=== PATIENT | female | born 1960 | race Caucasian/White ===

== ENCOUNTER 2016-08-19 19:41 | Inpatient (IN) | payer MEDICARE, MEDICAID ==
[~2016-08-19] VITALS: Ht 170.2 cm; Wt 78.9 kg
[~2016-08-19 19:41] MED LIST: AZEL30SP NS; DICL30AD3 PO; DICY20TA11 PO; ESOM40CA PO; GLYC1SUP RC; LACT10SO6 PO; LEVO125T PO; LIDO30AD10 TP; ONDA4TAB5 PO; OXCA150T5 PO; SULI200T4 PO; SUMA100T PO; TOPI15CA PO
[2016-08-19] MEDS ORDERED: MAGNESIUM HYDROXIDE 30 ML UDC PO PRN (20:30)
[2016-08-19] MEDS ORDERED: ACETAMINOPHEN 325 MG TABLET PO PRN (20:30)
[2016-08-19] MEDS ORDERED: MAG HYDROX/AL HYDROX/SIMETH 30 ML UDC PO PRN (20:30)
--- NOTE | 2016-08-19 20:30 | NUR ---
GPS PROFILE STITCHING MACHINE OPERATOR NOTES ADMITTED THIS 55 YEAR OLD FEMALE ON VOLUNTARY STATUS. PATIENT WAS EVALUATED IN THE EMERGENCY ROOM AFTER A FALL. PT DENIED HALLUCINATIONS AND DENIES THE USE OF DRUGS OR ALCOHOL. PT REPORTS THAT HER MAIN CONCERN WAS THAT SHE WAS SUFFERING FROM A SYNDROME THAT GIVES HER A LOT OF PAIN. PT HAS HISTORY OF DEPRESSION IN THE PAST. PT REPORTS THAT SHE HAS NEVER TRIED TO HARM HERSELF. UPON FACE TO FACE, PATIENT IS CALM AND QUIET, COOPERATIVE, SIGNED ALL THE CONSENT FORMS. VITAL SIGNS CHECKED AND RECORDED. RESPIRATION EVEN AND UNLABORED. NO SOB. NO ACUTE DISTRESS NOTED. SKIN/BODY ASSESSMENT DONE. NOTED RIGHT ARM BRUISE. RIGHT UPPER LEG BRUISE. PICTURES TAKEN. MRSA SWAB DONE. PATIENT ADMITTED UNDER DR. TORRES FOR PSYCHE AND DR. TRUJILLO FOR MEDICAL. BED IN LOW AND LOCKED POSITION, SIDERAILS UPX2, CALL OVIEDO WITHIN REACH, WILL CONTINUE TO MONITOR FOR SAFETY AND BEHAVIOR [id number].
[2016-08-20 02:06] VITALS: BP 105/76
[2016-08-20 07:57] VITALS: BP 140/80
[2016-08-20 08:00] VITALS: BP 110/65
[2016-08-20] MEDS ORDERED: TOPI-67 PO (08:35)
[2016-08-20] MEDS ORDERED: HYDR2TAB35 PO (08:35)
[2016-08-20] MEDS ORDERED: PARO30TA3 PO (08:35)
[2016-08-20] MEDS ORDERED: CLON1TAB PO (08:35)
[2016-08-20] MEDS ORDERED: LACT1CAP74 PO (08:35)
[2016-08-20] MEDS ORDERED: BACL10TA PO (08:35)
[2016-08-20] MEDS ORDERED: DULO60CA45 PO (08:35)
[2016-08-20] MEDS ORDERED: CLON0.5T PO (08:35)
[2016-08-20] MEDS ORDERED: OLAN20TA3 PO (08:35)
[2016-08-20] MEDS ORDERED: PANT40TA4 PO (08:35)
[2016-08-20] MEDS ORDERED: ACET-868 PO (08:35)
--- NOTE | 2016-08-20 10:26 | NUR ---
Initial DC Plan: Patient resides at [id number] [place] [address], [place] [address]; [phone]. Her caregiver Vidhya Dias ([phone]) and caregiver Windy ([phone]) are her contact persons. YOCASTA attempted to speak with caregiver Vidhya but she did not answer and SW unable to leave a message. Per the patient, she would like to see if she qualifies for SNF placement. YOCASTA will work with patient and MD for appropriate placement. SW will provide Narcotics Anonymous resources to the patient with meeting location date and time. alley worker will provide smoking cessation resources prior to discharge. alley worker will help form a safe and proper discharge.
[2016-08-20 10:30] LABS: BASOPHILS % (AUTO) 0.2 % (0.0-2.0); EOSINOPHILS # (AUTO) 0.2 /CMM (0.0-0.7); HEMATOCRIT 36 % (33-45); HEMOGLOBIN 11.6 g/dL (11.5-14.8); LYMPHOCYTES # (AUTO) 2.2 /CMM (0.8-4.8); LYMPHOCYTES % (AUTO) 25.8 % (20.0-44.0); MEAN CORPUSCULAR HEMOGLOBIN 28 PG (26.0-33.0); MEAN CORPUSCULAR HGB CONC 32 g/dl (31.0-36.0); MEAN CORPUSCULAR VOLUME 88 fL (82-100); MONOCYTES # (AUTO) 0.5 /CMM (0.1-1.30); MONOCYTES % (AUTO) 6.5 % (2.0-12.0); NEUTROPHILS # (AUTO) 5.6 /CMM (1.8-8.9); NEUTROPHILS % (AUTO) 65.5 % (43.0-81.0); PLATELET COUNT (AUTO) 442 /CMM (150-450); RDW COEFFICIENT OF VARIATION 17.3 (11.5-15.0); RED BLOOD CELL COUNT(AUTO) 4.09 MIL/uL (4.0-5.2); WHITE BLOOD COUNT (AUTO) 8.5 K/uL (4.3-11.0)
[2016-08-20 10:56] LABS: ALBUMIN 3.1 g/dL (3.4-5.0); BILIRUBIN,TOTAL 0.2 mg/dL (0.2-1.0); CALCIUM, SERUM 9.1 mg/dL (8.5-10.1); CREATININE 0.9 mg/dL (0.6-1.3); POTASSIUM 3.6 mmol/L (3.5-5.1); TOTAL PROTEIN, SERUM 6.7 g/dL (6.4-8.2)
--- NOTE | 2016-08-20 14:31 | NUR ---
RN-CO: Dr Serrato notified to reconcile home medication. Dr Serrato came and stated that Jose C Scott NP is the attending hospitalist.
--- NOTE | 2016-08-20 14:57 | NUR ---
RN-CO: Jose C Scott COMPUTER SUPPORT SPECIALIST INSTRUCTOR notified to reconcile home medications.
[2016-08-20 16:00] VITALS: BP 155/83
--- NOTE | 2016-08-20 16:57 | NUR ---
RN-CO: Reminded Jose C Scott NP to reconcile home medications.
[2016-08-20] MEDS ORDERED: SUMATRIPTAN SUCCINATE 100 MG TABLET PO PRN (19:30)
[2016-08-20 20:00] VITALS: BP 115/77
[2016-08-20] MEDS ORDERED: ONDANSETRON 4 MG TAB.RAPDIS PO PRN (20:00)
[2016-08-20] MEDS: HYDROMORPHONE HCL 2 MG TABLET PO PRN (20:00)
[2016-08-20] MEDS: OLANZAPINE 10 MG TABLET PO SCH (20:19)
[2016-08-20] MEDS: TOPIRAMATE 25 MG TABLET PO SCH (20:20)
[2016-08-20] MEDS: BACLOFEN (10 MG) 10 MG TABLET PO SCH (20:21)
[2016-08-20] MEDS: DULOXETINE HCL 30 MG CAPSULE.DR PO SCH (21:19)
[2016-08-20] MEDS ORDERED: OXCARBAZEPINE 150 MG TABLET PO SCH (22:00)
[2016-08-20] MEDS: TEMAZEPAM 7.5 MG CAPSULE PO PRN (22:19)
[2016-08-21] MEDS: LORAZEPAM 0.5 MG TABLET PO PRN (05:02)
[2016-08-21 08:00] VITALS: BP 140/88
[2016-08-21] MEDS: PANTOPRAZOLE 40 MG TABLET.DR PO SCH (08:48)
[2016-08-21] MEDS: ACIDOPHILUS/BULGARICUS 1 EACH TAB.CHEW PO SCH ×2 (08:48→17:50)
[2016-08-21] MEDS: LEVOTHYROXINE SODIUM 75 MCG TABLET PO SCH (08:48)
[2016-08-21] MEDS: BACLOFEN (10 MG) 10 MG TABLET PO SCH ×3 (08:48→17:50)
[2016-08-21] MEDS: OLANZAPINE 10 MG TABLET PO SCH ×2 (08:48→20:19)
[2016-08-21] MEDS: PAROXETINE HCL 20 MG TABLET PO SCH (08:48)
[2016-08-21] MEDS: TOPIRAMATE 25 MG TABLET PO SCH ×2 (08:48→17:50)
[2016-08-21] MEDS: SULINDAC 200 MG TABLET PO SCH ×2 (08:49→17:53)
[2016-08-21] MEDS: HYDROMORPHONE HCL 2 MG TABLET PO PRN ×2 (10:21→19:36)
--- NOTE | 2016-08-21 13:00 | NUR ---
GPS/RN PT ASKED TO COLLECT URINE SAMPLE.
[2016-08-21] MEDS: NICOTINE PATCH (14MG) 14 MG PATCH.TD24 TD SCH (15:19)
[2016-08-21 16:17] VITALS: BP 123/69
--- NOTE | 2016-08-21 18:55 | NUR ---
GPAS/RN ENDORSED TO MICHAEL ROY/ MANUAL MACHINIST TO COLLECT URINE SAMPLE PT KEEPS FORGETTING TO COLLECT.
[2016-08-21 20:00] VITALS: BP 99/72
[2016-08-21] MEDS: DULOXETINE HCL 30 MG CAPSULE.DR PO SCH (21:03)
[2016-08-21] MEDS: TEMAZEPAM 7.5 MG CAPSULE PO PRN (22:12)
[2016-08-22 06:56] LABS: APPEARANCE,URINE CLEAR (CLEAR); BILIRUBIN,URINE NEGATIVE (NEGATIVE); BLOOD, URINE 2+ Ery/uL (NEGATIVE); COLOR,URINE YELLOW (YELLOW); KETONES,URINE NEGATIVE (NEGATIVE); LEUKOCYTE ESTERASE ,URINE NEGATIVE (NEGATIVE); NITRITE, URINE NEGATIVE (NEGATIVE); PH,URINE 5.5 (5.0-8.0); PROTEIN,URINE NEGATIVE (NEGATIVE); UGLUCOSE NEGATIVE (NEGATIVE); UROBILINOGEN,URINE 0.2 EU/dL (0.2)
[2016-08-22 08:00] VITALS: BP 108/61
[2016-08-22 08:06] LABS: ADD URINE CULTURE NO; BACTERIA,URINE Rare /HPF (None Seen); SQUAMOUS EPITHELIAL CELL,UR Rare /HPF (None Seen); WBC,URINE 0-2 /HPF (0-3)
[2016-08-22] MEDS: PANTOPRAZOLE 40 MG TABLET.DR PO SCH (08:22)
[2016-08-22] MEDS: OLANZAPINE 10 MG TABLET PO SCH ×2 (08:22→21:26)
[2016-08-22] MEDS: TOPIRAMATE 25 MG TABLET PO SCH ×2 (08:22→16:57)
[2016-08-22] MEDS: BACLOFEN (10 MG) 10 MG TABLET PO SCH ×3 (08:22→16:57)
[2016-08-22] MEDS: NICOTINE PATCH (14MG) 14 MG PATCH.TD24 TD SCH (08:23)
[2016-08-22] MEDS: PAROXETINE HCL 20 MG TABLET PO SCH (08:23)
[2016-08-22] MEDS: LEVOTHYROXINE SODIUM 75 MCG TABLET PO SCH (08:23)
[2016-08-22] MEDS: ACIDOPHILUS/BULGARICUS 1 EACH TAB.CHEW PO SCH ×2 (08:23→16:57)
[2016-08-22] MEDS: SULINDAC 200 MG TABLET PO SCH ×2 (08:24→16:58)
[2016-08-22] MEDS: HYDROMORPHONE HCL 2 MG TABLET PO PRN ×2 (08:38→16:58)
[2016-08-22] MEDS ORDERED: NICOTINE PATCH (14MG) 14 MG PATCH.TD24 TD SCH (09:00)
--- NOTE | 2016-08-22 12:23 | NUR ---
GPS/RN DR. MCKNIGHT OK'ED TO START TRILEPTAL 300MG PO HS FROM THE HOME MEDS LIST. CONSENT SIGNED AND FAXED TO THE PHARMACY. PHARMACY MADE AWARE THAT MEDICATION IS FOR THE PSYCH REASON.
[2016-08-22 16:00] VITALS: BP 106/72
[2016-08-22 20:09] VITALS: BP 99/58
[2016-08-22] MEDS: OXCARBAZEPINE 150 MG TABLET PO SCH (21:26)
[2016-08-22] MEDS: DULOXETINE HCL 30 MG CAPSULE.DR PO SCH (21:27)
[2016-08-22] MEDS: TEMAZEPAM 7.5 MG CAPSULE PO PRN (22:22)
[2016-08-23 08:00] VITALS: BP 94/68
[2016-08-23] MEDS: LEVOTHYROXINE SODIUM 75 MCG TABLET PO SCH (08:28)
[2016-08-23] MEDS: PANTOPRAZOLE 40 MG TABLET.DR PO SCH (08:28)
[2016-08-23] MEDS: BACLOFEN (10 MG) 10 MG TABLET PO SCH ×3 (08:29→16:20)
[2016-08-23] MEDS: ACIDOPHILUS/BULGARICUS 1 EACH TAB.CHEW PO SCH ×2 (08:29→16:20)
[2016-08-23] MEDS: OLANZAPINE 10 MG TABLET PO SCH ×2 (08:31→21:18)
[2016-08-23] MEDS: TOPIRAMATE 25 MG TABLET PO SCH ×2 (08:31→16:20)
[2016-08-23] MEDS: NICOTINE PATCH (14MG) 14 MG PATCH.TD24 TD SCH (08:31)
[2016-08-23] MEDS: PAROXETINE HCL 20 MG TABLET PO SCH (08:31)
[2016-08-23] MEDS: SULINDAC 200 MG TABLET PO SCH ×2 (08:32→16:21)
[2016-08-23] MEDS: LORAZEPAM 0.5 MG TABLET PO PRN ×2 (09:50→18:54)
--- NOTE | 2016-08-23 09:50 | NUR ---
[id number]: GAVE ATIVAN 0.5 MG PO DUE TO SEVERER ANXIETY UPON PT REQUEST AND WILL CONTINUE TO MONITOR FOR EFFECTIVENESS OF MEDICATION
--- NOTE | 2016-08-23 12:08 | NUR ---
YOCASTA faxed a referral to [facility] ([facility] [id number], [place] [address] will follow up Addendum: 08/24/16 at 1328 by MINO RUST Pt. has been accepted to [facility] per July from the facility
[2016-08-23] MEDS: HYDROMORPHONE HCL 2 MG TABLET PO PRN (12:26)
--- NOTE | 2016-08-23 12:26 | NUR ---
[id number]: GAVE DILAUDID 2 MG PO DUE TO HEADACHE 11/18 UPO PT REQUEST AND WILL CONTINUE TO MONITOR FOR EFFECTIVENESS OF MEDICATION
[2016-08-23 16:00] VITALS: BP 97/66
--- NOTE | 2016-08-23 18:54 | NUR ---
GPS RN NOTE, PATIENT HAS A COMPLAINT OF FEELING ANXIOUS AND WOULD LIKE MEDICATION AT THIS TIME. PATIENT VITAL SIGNS ARE STABLE. GAVE ATIVAN MG PO Q6HR PRN ORDERED. WILL REASSESS FOR AND ANXIETY AND I WILL CONTINUE TO MONITOR THIS PATIENT.
--- NOTE | 2016-08-23 19:30 | NUR ---
GPS RN NOTE, RECEIVED PATIENT AWAKE AND IN BED, NO S/S OR COMPLAINTS OF PAIN AT THIS TIME. PATIENT IS DISPLAYING NO S/S OF APPARENT DISTRESS AT THIS TIME. PATIENT BREATHING IS UNLABORED WITH EQUAL RISE AND FALL OF THE CHEST. PATIENT IS ALERT AND ORIENTED X 3 ON ROOM AIR WITH A SPO2 96%. PATIENT COMPLIANT WITH MEDICATIONS, DEPRESSED, COOPERATIVE, ATTENTION SEEKING , AND NEEDS REORIENTATION. PATIENT DENIES SUICIDE AND HOMICIDAL IDEATIONS AT THIS TIME. PATIENT ASSISTED WITH TURNING AND REPOSITIONING Q2HR AND PRN FOR COMFORT AND CIRCULATION. PATIENT HAS NO NEEDS AT THIS TIME. PATIENT EDUCATED ON THE USE OF THE CALL OVIEDO. PATIENT BED SIDE RAILS UP X2 FOR SAFETY, BED IS LOCKED AND LOW WILL CONTINUE TO MONITOR AND MAINTAIN SAFETY.
[2016-08-23 19:47] VITALS: BP 104/64
[2016-08-23] MEDS: OXCARBAZEPINE 150 MG TABLET PO SCH (21:18)
[2016-08-23] MEDS: DULOXETINE HCL 30 MG CAPSULE.DR PO SCH (21:18)
[2016-08-24 08:11] VITALS: BP 104/70
[2016-08-24] MEDS: PAROXETINE HCL 20 MG TABLET PO SCH (08:21)
[2016-08-24] MEDS: PANTOPRAZOLE 40 MG TABLET.DR PO SCH (08:22)
[2016-08-24] MEDS: BACLOFEN (10 MG) 10 MG TABLET PO SCH ×3 (08:22→16:10)
[2016-08-24] MEDS: LEVOTHYROXINE SODIUM 75 MCG TABLET PO SCH (08:22)
[2016-08-24] MEDS: ACIDOPHILUS/BULGARICUS 1 EACH TAB.CHEW PO SCH ×2 (08:23→16:10)
[2016-08-24] MEDS: OLANZAPINE 10 MG TABLET PO SCH ×2 (08:23→21:43)
[2016-08-24] MEDS: TOPIRAMATE 25 MG TABLET PO SCH ×2 (08:23→16:10)
[2016-08-24] MEDS: SULINDAC 200 MG TABLET PO SCH ×2 (08:26→16:10)
[2016-08-24] MEDS: NICOTINE PATCH (14MG) 14 MG PATCH.TD24 TD SCH (08:30)
[2016-08-24] MEDS: HYDROMORPHONE HCL 2 MG TABLET PO PRN ×2 (09:52→20:49)
--- NOTE | 2016-08-24 09:52 | NUR ---
[id number]: GAVE DILAUDID 2 MG PO DUE TO GENERALIZED PAIN 11/18 UPON PT REQUEST AND WILL CONTINUE TO MONITOR FOR EFFECTIVENESS OF MEDICATION
--- NOTE | 2016-08-24 09:53 | NUR ---
[id number]: GAVE MAALOX 30 ML PO DUE TO INDIGESTION UPON PT REQUEST AND WILL CONTINUE TO MONITOR FRO EFFECTIVENESS OF MEDICATION
[2016-08-24] MEDS: LORAZEPAM 0.5 MG TABLET PO PRN (12:25)
--- NOTE | 2016-08-24 12:25 | NUR ---
[id number]: GAVE ATIVAN 0.5 MG PO DUE TO SEVERE ANXIETY UPON PT REQUEST AND WILL CONTINUE TO MONITOR FOR EFFECTIVENESS OF MEDICATION
[2016-08-24 16:00] VITALS: BP 134/66
[2016-08-24] MEDS: LIDOCAINE 5% (PATCH) 1 EA PATCH TP SCH (17:46)
--- NOTE | 2016-08-24 20:09 | NUR ---
GPS RN NOTE: PATIENT WAS C/O LEFT SIDED CHEST PAIN DESCRIBE OF THROBBING AND SHARP PAIN, V/S BP 108/68, P82, R18, T98.4, PATIENT HAS NO SOB, NO ACUTE DISTRESS, BREATHING EVEN AND UNLABORED, PATIENT LOOKS ANXIOUS. NOTIFIED DR. LIM WITH ORDERS GIVEN NOTED AND CARRIED OUT. WILL CONTINUE TO MONITOR [id number] FOR SAFETY
[2016-08-24 20:21] VITALS: BP 104/65
--- NOTE | 2016-08-24 21:37 | NUR ---
GPS RN NOTE: RECEIVED RESULT OF EKG SINUS TACHYCARDIA; RATE = 120, TROPONIN LEVEL = 0.017, PATIENT HAS NO SOB, NO ACUTE DISTRESS, BREATHING EVEN AND UNLABORED, DENIES CHEST PAIN, P= 82 (MANUALLY). RESULT REPORTED TO DR. LIM WITH NO ORDER GIVEN NOTED AND CARRIED OUT.
[2016-08-24] MEDS: OXCARBAZEPINE 150 MG TABLET PO SCH (21:43)
[2016-08-24] MEDS: DULOXETINE HCL 30 MG CAPSULE.DR PO SCH (21:43)
[2016-08-24] MEDS: TEMAZEPAM 7.5 MG CAPSULE PO PRN (23:27)
[2016-08-25] MEDS: LORAZEPAM 0.5 MG TABLET PO PRN ×2 (01:12→18:38)
[2016-08-25 08:00] VITALS: BP 101/69
[2016-08-25] MEDS: PANTOPRAZOLE 40 MG TABLET.DR PO SCH (08:38)
[2016-08-25] MEDS: PAROXETINE HCL 20 MG TABLET PO SCH (08:38)
[2016-08-25] MEDS: SULINDAC 200 MG TABLET PO SCH ×2 (08:39→16:45)
[2016-08-25] MEDS: ACIDOPHILUS/BULGARICUS 1 EACH TAB.CHEW PO SCH ×2 (08:39→16:45)
[2016-08-25] MEDS: LEVOTHYROXINE SODIUM 75 MCG TABLET PO SCH (08:39)
[2016-08-25] MEDS: TOPIRAMATE 25 MG TABLET PO SCH ×2 (08:39→16:45)
[2016-08-25] MEDS: BACLOFEN (10 MG) 10 MG TABLET PO SCH ×3 (08:39→16:45)
[2016-08-25] MEDS: OLANZAPINE 10 MG TABLET PO SCH ×2 (08:40→21:15)
[2016-08-25] MEDS: NICOTINE PATCH (14MG) 14 MG PATCH.TD24 TD SCH (08:41)
[2016-08-25 16:00] VITALS: BP 100/57
[2016-08-25] MEDS: LIDOCAINE 5% (PATCH) 1 EA PATCH TP SCH (16:49)
--- NOTE | 2016-08-25 18:38 | NUR ---
[id number]: GAVE ATIVAN 0.5 MG PO DUE TO ANXIETY UPON PT REQUEST AND WILL CONTINUE TO MONITOR FOR EFFECTIVENESS OF MEDICATION
--- NOTE | 2016-08-25 19:30 | NUR ---
GPS RN NOTE, RECEIVED PATIENT AWAKE AND IN BED, NO S/S OR COMPLAINTS OF PAIN AT THIS TIME. PATIENT IS DISPLAYING NO S/S OF APPARENT DISTRESS AT THIS TIME. PATIENT BREATHING IS UNLABORED WITH EQUAL RISE AND FALL OF THE CHEST. PATIENT IS ALERT AND ORIENTED X 2 ON ROOM AIR WITH A SPO2 98%. PATIENT COMPLIANT WITH MEDICATIONS, DEPRESSED, COOPERATIVE, CALM, CONFUSED AT TIMES, AND NEEDS REORIENTATION. PATIENT DENIES SUICIDE AND HOMICIDAL IDEATIONS AT THIS TIME. PATIENT ASSISTED WITH TURNING AND REPOSITIONING Q2HR AND PRN FOR COMFORT AND CIRCULATION. PATIENT HAS NO NEEDS AT THIS TIME. PATIENT EDUCATED ON THE USE OF THE CALL OVIEDO. PATIENT BED SIDE RAILS UP X2 FOR SAFETY, BED IS LOCKED AND LOW WILL CONTINUE TO MONITOR AND MAINTAIN SAFETY.
[2016-08-25 19:52] VITALS: BP 103/60
[2016-08-25] MEDS: OXCARBAZEPINE 150 MG TABLET PO SCH (21:15)
[2016-08-25] MEDS: DULOXETINE HCL 30 MG CAPSULE.DR PO SCH (21:15)
[2016-08-25] MEDS: TEMAZEPAM 7.5 MG CAPSULE PO PRN (22:24)
--- NOTE | 2016-08-25 22:24 | NUR ---
GPS RN NOTE, PATIENT HAS A COMPLAINT OF NOT BEING ABLE TO SLEEP AND WOULD LIKE A SLEEPING AID AT THIS TIME. PATIENT VITAL SIGNS ARE STABLE. GAVE RESTORIL 7.5MG PO HS ORDERED. WILL REASSESS FOR INSOMNIA AND I WILL CONTINUE TO MONITOR THIS PATIENT.
[2016-08-26 08:00] VITALS: BP 112/78
[2016-08-26] MEDS: SULINDAC 200 MG TABLET PO SCH (08:06)
[2016-08-26] MEDS: BACLOFEN (10 MG) 10 MG TABLET PO SCH ×2 (08:06→12:52)
[2016-08-26] MEDS: TOPIRAMATE 25 MG TABLET PO SCH (08:07)
[2016-08-26] MEDS: LEVOTHYROXINE SODIUM 75 MCG TABLET PO SCH (08:07)
[2016-08-26] MEDS: PANTOPRAZOLE 40 MG TABLET.DR PO SCH (08:07)
[2016-08-26] MEDS: ACIDOPHILUS/BULGARICUS 1 EACH TAB.CHEW PO SCH (08:07)
[2016-08-26] MEDS: OLANZAPINE 10 MG TABLET PO SCH ×2 (08:07→09:00)
[2016-08-26] MEDS: PAROXETINE HCL 20 MG TABLET PO SCH (08:07)
[2016-08-26] MEDS: NICOTINE PATCH (14MG) 14 MG PATCH.TD24 TD SCH (08:08)
--- NOTE | 2016-08-26 11:04 | NUR ---
DR. TORRES GAVE AN ORDER TO D/C HOLD AND D/C TO [facility]. PSYCHIATRIST IS AWARE THAT REFUSED ZYPREXA TABS THIS MORNING. PT. DENIES SUICIDAL AND HOMICIDAL AND TO FOLLOW UP WITH PSYCH AND MEDICAL DOCTORS. BELONGINGS READY AMD PICTURES TAKEN FOR THE SKIN ISSUES. Addendum: 08/26/16 at 1333 by DENITA IBARRA RN PT. WILL BE DISCHARGE HOME AND WILL GO TO [facility] TOMORROW. Addendum: 08/26/16 at 1337 by MAI CHOUDHARY RN PER DR. TORRES PT. IS GOING HOME AND ORDERED [facility].
[2016-08-26] MEDS: HYDROMORPHONE HCL 2 MG TABLET PO PRN (12:55)
--- NOTE | 2016-08-26 13:37 | NUR ---
BETTIE GUIDO MADE AWARE OF THE DISCHARGE AND SAID OK FRO DISCHARGE AND WROTE PRESCRIPTIONS.
--- NOTE | 2016-08-26 14:35 | NUR ---
PT. LEFT THE UNIT WITH BELONGINGS ANDWAS PICKED UP BY HER NEWS COPY EDITOR WAYNE HOLLOWAYUS. PT. INSTRUCTED ON MEDS TO CONTINUE AT HOME AND VERBALIZES UNDERSTANDING AND ADVISED TO MAKE A FOLLOW UP ON HER PSYCHIATRIST AND MEDICAL DOCTORS AND AGREED. PT. LEFT THE UNIT WITHOUT DISTRESS AND ON STABLE CONDITION AND WHEELED BY STAFF TO THE LOBBY VIA A WHEELCHAIR. V/S TAKEN: BP 121/76, MT 88, RR 18, OXYGEN SAT 100% AND TEMP 97.8.
--- NOTE | 2016-08-26 16:28 | NUR ---
Discharge note: Pt. changed her mind and wanted to discharge back home [address], [address], [place] [address]; [phone] with ammy caregivers Vidhyalos Nathanus ([phone]) and Windy ([phone]) today instead of [facility] ([facility]) [address], [place] [address] where she agreed to go to tomorrow after she goes and takes some of her belongings from her house. Pt. was picked up by Vidhya. Pt. was discharged home with prescriptions. Pt. will follow up with Airport Shuttle Driver Dr. Mookie Salgado [phone] Amy Hampton [phone]. Pt. is a smoker so was provided referral to Nicotine Anonymous located at [facility] [address] [facility] [address] on Tue 6:30 PM . Discharge paperwork has been signed, discharge instructions provided to pt. and caregiver.
== END 2016-08-26 14:35 | disposition home or self-care (01) | DRG 885 ==
LOC: GPS 20:03
PROVIDERS: ADMIT Psychiatry & Neurology Psychiatry; ATTEND Contractor
DX: F32.3 Major depressive disorder, single episode, severe with psychotic features (principal); N39.0 Urinary tract infection, site not specified; Q79.6 Ehlers-Danlos syndromes; F41.9 Anxiety disorder, unspecified; E03.9 Hypothyroidism, unspecified; G47.30 Sleep apnea, unspecified; G89.29 Other chronic pain; K21.9 Gastro-esophageal reflux disease without esophagitis; M06.9 Rheumatoid arthritis, unspecified; M19.90 Unspecified osteoarthritis, unspecified site
CPT/HCPCS: 36415; 80053-TC; 81000-TC; 84484-TC; 85025-TC; 87081-TC; 87086-TC; Z7610

== ENCOUNTER 2017-07-15 16:22 | Inpatient (IN) | payer MEDICARE, MEDICAID ==
[~2017-07-15] VITALS: Ht 170.2 cm; Wt 76.2 kg
[~2017-07-15 16:22] MED LIST changes: +ACET-868 PO; -AZEL30SP NS; +BACL10TA PO; -DICL30AD3 PO; -DICY20TA11 PO; -ESOM40CA PO; -GLYC1SUP RC; +HYDR2TAB35 PO; -LACT10SO6 PO; +LACT1CAP74 PO; -LIDO30AD10 TP; +PANT40TA4 PO; -TOPI15CA PO; +TOPI25TA49 PO
--- NOTE | 2017-07-15 16:30 | NUR ---
56 YO FEMALE BB AMBULANCE FROM SNF. PATIENT IS ALERT X1, SELF, PER SNF PATIENT WAS SENT FOR PSYCH EVAL. PATIENT WAS PLACED ON STRAIGHTENER AND ALIGNER, SKIN WARM AND DRY, RESP EVEN AND UNLABORED. AWAITING ORDERS FROM PROVIDER
--- NOTE | 2017-07-15 17:34 | NUR ---
CALLED GUERO SPOUT TENDER, ETA 1HR
[2017-07-15 17:37] LABS: BASOPHILS # (AUTO) 0.1 /CMM (0.0-0.2); BASOPHILS % (AUTO) 0.4 % (0.0-2.0); EOSINOPHILS % (AUTO) 0.6 % (0.0-6.0); HEMATOCRIT 39 % (33-45); HEMOGLOBIN 13.1 g/dL (11.5-14.8); LYMPHOCYTES # (AUTO) 3.4 /CMM (0.8-4.8); LYMPHOCYTES % (AUTO) 25.7 % (20.0-44.0); MEAN CORPUSCULAR HGB CONC 34 g/dl (31.0-36.0); MEAN CORPUSCULAR VOLUME 84 fL (82-100); MONOCYTES % (AUTO) 7.4 % (2.0-12.0); NEUTROPHILS # (AUTO) 8.5 /CMM (1.8-8.9); NEUTROPHILS % (AUTO) 65.9 % (43.0-81.0); PLATELET COUNT (AUTO) 505 /CMM (150-450); RDW COEFFICIENT OF VARIATION 16.5 (11.5-15.0); WHITE BLOOD COUNT (AUTO) 13.1 K/uL (4.3-11.0)
[2017-07-15] MEDS ORDERED: CLON1TAB5 PO (17:43)
[2017-07-15] MEDS ORDERED: ALBU8.5H8 IH (17:43)
[2017-07-15] MEDS ORDERED: ERGO500014 PO (17:43)
[2017-07-15] MEDS ORDERED: OXYC-128 PO (17:43)
[2017-07-15] MEDS ORDERED: BECL10.62 IH (17:43)
[2017-07-15] MEDS ORDERED: OXYC-133 PO (17:43)
[2017-07-15] MEDS ORDERED: ESTR42.5 VG (17:43)
[2017-07-15] MEDS ORDERED: LIDO30AD10 TP (17:43)
[2017-07-15] MEDS ORDERED: TRIA15OI2 TP (17:43)
[2017-07-15] MEDS ORDERED: PARO10TA86 PO (17:43)
[2017-07-15] MEDS ORDERED: ZOLP5TAB2 PO (17:43)
[2017-07-15] MEDS ORDERED: ALBU2.5V38 IH (17:43)
[2017-07-15] MEDS ORDERED: DIPH1TAB PO (17:43)
[2017-07-15] MEDS ORDERED: DULO60CA45 PO (17:43)
[2017-07-15] MEDS ORDERED: LACT10SO PO (17:43)
[2017-07-15 17:45] LABS: CALCIUM, SERUM 9.8 mg/dL (8.5-10.1); CARBON DIOXIDE 23 mmol/L (21-32); CHLORIDE 104 mmol/L (98-107); CREATININE 0.7 mg/dL (0.6-1.3); GLUCOSE 104 mg/dL (74-106); POTASSIUM 3.3 mmol/L (3.5-5.1); SODIUM SERUM 141 mmol/L (136-145); UREA NITROGEN, BLOOD 18 mg/dL (7-18)
[2017-07-15 17:51] LABS: ALANINE AMINOTRANSFERASE 19 U/L (12-78); ALBUMIN 4.1 g/dL (3.4-5.0); ALCOHOL, BLOOD < 3 mg/dL (0-0); ALKALINE PHOSPHATASE 94 U/L (46-116); ASPARTATE AMINOTRANSFERASE 15 U/L (15-37); BILIRUBIN,DIRECT 0.1 mg/dL (0.0-0.2); BILIRUBIN,TOTAL 0.3 mg/dL (0.2-1.0); SALICYLATE 6.4 mg/dL (2.8-20.0); TOTAL PROTEIN, SERUM 7.6 g/dL (6.4-8.2)
[2017-07-15 17:59] LABS: ACETAMINOPHEN < 2 ug/ml (10-30)
[2017-07-15] MEDS ORDERED: LORAZEPAM INJ 2 MG/ML VIAL ONE (18:49)
[2017-07-15] MEDS ORDERED: LORAZEPAM INJ 2 MG/ML VIAL IM/IV ONE (19:00)
--- NOTE | 2017-07-15 19:04 | NUR ---
MEDICATED PT ORDERED
[2017-07-15] MEDS ORDERED: OLANZAPINE 10 MG VIAL IM ONE ×2 (19:40→20:00)
--- NOTE | 2017-07-15 20:21 | NUR ---
PT TO CT
--- NOTE | 2017-07-15 21:59 | NUR ---
Patient is resting comfortably in bed with eyes closed. Easily aroused. VSS
--- NOTE | 2017-07-15 22:11 | NUR ---
URINE SAMPLE COLLECTED AND SENT TO LAB
--- NOTE | 2017-07-15 22:19 | NUR ---
REPORT GIVEN TO RUTH-CLOTH SHEARING SUPERVISOR MANNY FOR SANTOS.
[2017-07-15 22:37] LABS: BILIRUBIN,URINE NEGATIVE (NEGATIVE); BLOOD, URINE 2+ Ery/uL (NEGATIVE); COLOR,URINE YELLOW (YELLOW); KETONES,URINE 1+ (NEGATIVE); LEUKOCYTE ESTERASE ,URINE NEGATIVE (NEGATIVE); NITRITE, URINE NEGATIVE (NEGATIVE); PROTEIN,URINE NEGATIVE (NEGATIVE); UGLUCOSE NEGATIVE (NEGATIVE); UROBILINOGEN,URINE 0.2 EU/dL (0.2)
[2017-07-15 22:40] LABS: APPEARANCE,URINE CLEAR (CLEAR)
[2017-07-15 23:05] LABS: BACTERIA,URINE None seen /HPF (None Seen); SQUAMOUS EPITHELIAL CELL,UR Few /HPF (None Seen); WBC,URINE 0-2 /HPF (0-3)
[2017-07-15 23:06] LABS: URINE AMORPHOUS URATE Few /HPF (None Seen)
--- NOTE | 2017-07-15 23:10 | NUR ---
ADMITTED A 56 Y/O FEMALE FROM [facility] AND EVALUATED FROM [facility]. ON 5150 HOLD GD, BASED ON HOLD, PATIENT IS BROUGHT FOR EVALUATION D/T PSYCHOTIC AND BIZARRE BEHAVIOR. PATIENT ADMITTING DX. PSYCHOSIS AND MEDICAL DIAGNOSIS OF COPD, ASTHMA, COMPLEX PARTIAL SEIZURE, BRAIN DAMAGE, NARCOLEPSY, EPILEPSY, MITRAL VALVE PROLAPSE, ULCERATIVE COLITIS, RHEUMATOID ARTHRITIS, OSTEOARTHRITIS, LUPUS, CHRONIC PAIN, SYNCOPE, COLLAPSE, DIAPHRAGMATIC HERNIA W/O OBSTRUCTION OR GANGRENE, COMPLETE ROTATOR CUFF TEAR/ RUPTURE OF RIGHT SHOULDER AND MARIA DOLORES-DANLOS SYNDROME. UPON FACE TO FACE EVALUATION, PATIENT APPEARED ALERT AND ORIENTED X 3, CALM, LETHARGIC, PATIENT RECEIVED ATIVAN AND ZYPREXA IN THE ER D/T COMBATIVE BEHAVIOR. NO AGITATION AT THIS TIME. HEAD TO TOE ASSESSMENT DONE. PATIENT IS WEARING NECK BRACE AND BOTH HAND BRACES. PATIENT UNABLE TO SIGN PAPER WORKS. NO SOB, NO ACUTE DISTRESS, BREATHING EVEN AND UNLABORED, NO S/S OF PAIN AND DISCOMFORT. PATIENT IS UNDER THE CARE OF DR. ZAPATA AND DR. TORRES. BELONGINGS COLLECTED FOR CONTRABAND CHECK. NOTIFIED VOCATIONAL REHABILITATION COUNSELOR. VILMA SALAS TO RECONCILE MEDICATION. NOTIFIED RESPONSIBLE LIBERTARIAN OF THE ADMISSION. KEPT CLEAN, DRY AND COMFORTABLE. WILL CONTINUE TO MONITOR Q15 MINS FOR SAFETY.
[2017-07-15] MEDS ORDERED: ACETAMINOPHEN 325 MG TABLET PO PRN (23:30)
[2017-07-15] MEDS ORDERED: MAGNESIUM HYDROXIDE 30 ML UDC PO PRN (23:30)
[2017-07-15] MEDS ORDERED: MAG HYDROX/AL HYDROX/SIMETH 30 ML UDC PO PRN (23:30)
[2017-07-16] MEDS: ERGOCALCIFEROL (VITAMIN D 2) 50,000 UNIT CAPSULE PO SCH ×2 (00:30→10:47)
[2017-07-16] MEDS ORDERED: TOPIRAMATE 25 MG TABLET PO PRN (00:30)
[2017-07-16] MEDS ORDERED: DIPHENOXYLATE HCL/ATROP SULF 1 UDTAB TABLET PO PRN (00:30)
[2017-07-16] MEDS ORDERED: BACLOFEN (10 MG) 10 MG TABLET PO PRN (00:30)
[2017-07-16] MEDS ORDERED: TRIAMCINOLONE OINT 0.1% 15 GM TUBE TP PRN (00:30)
[2017-07-16] MEDS ORDERED: ALBUTEROL SULFATE 8 GM HFA.AER.AD IH PRN (00:30)
[2017-07-16] MEDS ORDERED: LIDOCAINE 5% (PATCH) 1 EA PATCH TP PRN (00:30)
[2017-07-16] MEDS ORDERED: ALBUTEROL FS 2.5 MG/3 ML VIAL.NEB IH PRN (00:30)
[2017-07-16] MEDS ORDERED: OXCARBAZEPINE 150 MG TABLET PO PRN (00:30)
[2017-07-16 01:06] VITALS: BP 91/57
[2017-07-16 07:21] LABS: BASOPHILS # (AUTO) 0.1 /CMM (0.0-0.2); BASOPHILS % (AUTO) 0.8 % (0.0-2.0); EOSINOPHILS % (AUTO) 0.8 % (0.0-6.0); HEMATOCRIT 37 % (33-45); HEMOGLOBIN 12.3 g/dL (11.5-14.8); LYMPHOCYTES # (AUTO) 3.6 /CMM (0.8-4.8); LYMPHOCYTES % (AUTO) 34.9 % (20.0-44.0); MEAN CORPUSCULAR HGB CONC 33 g/dl (31.0-36.0); MEAN CORPUSCULAR VOLUME 85 fL (82-100); MONOCYTES % (AUTO) 9.1 % (2.0-12.0); NEUTROPHILS # (AUTO) 5.7 /CMM (1.8-8.9); NEUTROPHILS % (AUTO) 54.4 % (43.0-81.0); PLATELET COUNT (AUTO) 412 /CMM (150-450); RDW COEFFICIENT OF VARIATION 17.5 (11.5-15.0); RED BLOOD CELL COUNT(AUTO) 4.39 MIL/uL (4.0-5.2); WHITE BLOOD COUNT (AUTO) 10.5 K/uL (4.3-11.0)
[2017-07-16 07:35] LABS: ALBUMIN 3.6 g/dL (3.4-5.0); BILIRUBIN,TOTAL 0.6 mg/dL (0.2-1.0); CALCIUM, SERUM 9.2 mg/dL (8.5-10.1); CREATININE 0.6 mg/dL (0.6-1.3); POTASSIUM 3.4 mmol/L (3.5-5.1); TOTAL PROTEIN, SERUM 6.7 g/dL (6.4-8.2)
[2017-07-16 07:42] LABS: CHOLESTEROL 186 mg/dL (<200); HDL CHOLESTEROL 72 mg/dL (40-60); LDL 98 mg/dL (0-99); TRIGLYCERIDES 63 mg/dL (30-150)
[2017-07-16] MEDS ORDERED: HYDR5TAB PO (07:49)
[2017-07-16] MEDS ORDERED: HYDR10TA PO (07:49)
[2017-07-16 08:00] VITALS: BP 96/60
[2017-07-16] MEDS ORDERED: DULOXETINE HCL 30 MG CAPSULE.DR PO SCH (09:00)
[2017-07-16] MEDS: LACTULOSE 10 G/15 ML UDC (PYXIS) PO SCH ×3 (09:00→17:49)
[2017-07-16] MEDS: LEVOTHYROXINE SODIUM 75 MCG TABLET PO SCH (10:43)
[2017-07-16] MEDS: PANTOPRAZOLE 40 MG TABLET.DR PO SCH ×2 (10:44→17:42)
[2017-07-16] MEDS: NICOTINE PATCH (14MG) 14 MG PATCH.TD24 TD SCH (10:44)
[2017-07-16] MEDS ORDERED: OLANZAPINE 2.5 MG TABLET PO SCH ×2 (11:30)
[2017-07-16] MEDS: DULOXETINE HCL 30 MG CAPSULE.DR PO SCH (11:47)
[2017-07-16] MEDS ORDERED: POTASSIUM CHLORIDE 20 MEQ TAB.PRT.SR PO ONE (12:30)
--- NOTE | 2017-07-16 12:59 | NUR ---
KDUR 40 MEQ GIVEN FOR LOW BLOOD LEVEL
[2017-07-16] MEDS ORDERED: ALBUTEROL FS 2.5 MG/0.5 ML VIAL.NEB NEB PRN (13:30)
--- NOTE | 2017-07-16 15:00 | NUR ---
DR. MCKNIGHT,DOROTHEA ZAPATA STEAM CLOTHES PRESS OPERATOR IN TO SEE PT.
[2017-07-16 16:00] VITALS: BP 115/61
[2017-07-16] MEDS: HYDROCODONE/APAP 5/325MG 1 EACH TABLET PO PRN ×2 (16:21→21:51)
--- NOTE | 2017-07-16 16:28 | NUR ---
MEDICATED FOR BACK PAIN AND RT. EYE PAIN WITH NORCO.
[2017-07-16] MEDS: OXCARBAZEPINE 150 MG TABLET PO SCH ×2 (19:30→21:49)
[2017-07-16 20:00] VITALS: BP 94/60
[2017-07-16] MEDS: TOPIRAMATE 25 MG TABLET PO SCH (21:03)
[2017-07-16] MEDS: TEMAZEPAM 7.5 MG CAPSULE PO PRN (21:52)
[2017-07-16] MEDS ORDERED: PAROXETINE HCL 20 MG TABLET PO SCH ×2 (22:00)
[2017-07-17] MEDS: ESTROGENS,CONJUGATED TUBE VG SCH (00:30)
--- NOTE | 2017-07-17 07:31 | NUR ---
GPS RN NOTES PATIENT RECEIVED RESTING INSIDE ROOM, SLEEPING, AROUSABLE THROUGH VERBAL AND TACTILE STIMULI, PATIENT VERBALLY RESPONSIVE. ABLE TO MAKE NEEDS KNOWN AND FOLLOW SIMPLE INSTRUCTIONS. BREATHING EVEN AND UNLABORED. NO SOB OR ACUTE DISTRESS NOTED AT THIS TIME. NECK BRACE AND HAND BRACE IN PLACE. WILL CONTINUE TO MONITOR. BED LOCKED AND IN LOW POSITION. BILATERAL UPPER SIDE RAILS UP AND LOCKED. CALL LIGHT WITHIN EASY REACH
[2017-07-17 08:00] VITALS: BP 100/59
[2017-07-17] MEDS: LACTULOSE 10 G/15 ML UDC (PYXIS) PO SCH ×2 (08:38→16:17)
[2017-07-17] MEDS: NICOTINE PATCH (14MG) 14 MG PATCH.TD24 TD SCH (08:38)
[2017-07-17] MEDS: TOPIRAMATE 25 MG TABLET PO SCH ×2 (08:39→16:17)
[2017-07-17] MEDS: PAROXETINE HCL 20 MG TABLET PO SCH (08:39)
[2017-07-17] MEDS: DULOXETINE HCL 30 MG CAPSULE.DR PO SCH (08:40)
[2017-07-17] MEDS: PANTOPRAZOLE 40 MG TABLET.DR PO SCH ×2 (08:40→16:17)
[2017-07-17] MEDS: LEVOTHYROXINE SODIUM 75 MCG TABLET PO SCH (08:40)
[2017-07-17] MEDS: HYDROCODONE/APAP 5/325MG 1 EACH TABLET PO PRN ×3 (08:57→16:30)
--- NOTE | 2017-07-17 09:00 | NUR ---
GPS RN NURSE PATIENT WITH C/O GENERALIZED BODY PAIN WITH LEVEL OF 10/10. REQUESTED FOR 2 NORCOS, GIVEN MEDICATION ORDERED. PATIENT CALM AND RELAXED. ALERT AND ORIENTED, NO CHANGES IN LOC NOTED AT THIS TIME. WILL CONTINUE TO MONITOR
[2017-07-17] MEDS: LORAZEPAM 0.5 MG TABLET PO PRN (13:15)
--- NOTE | 2017-07-17 13:28 | NUR ---
GPS RN NOTES PATIENT CAME TO THE NURSING STATION ASKING FOR HER BELONGINGS, EXPLAINED TO PATIENT THAT HER BELONGINGS ARE IN THE SAFE, PATIENT STARTED STATING THAT SHE IS GETTING AGITATED AND WANTS AN ATIVAN. ATTEMPTED TO CALM PATIENT DOWN BUT PATIENT DOESNT WANT TO LISTEN TO REASON AND KEPT ASKING FOR HER BELONGINGS TO BE GIVEN TO HER. EXPLAINED TO PATIENT THAT ALL BELONGINGS CANNOT BE RELEASED TO HER. GIVEN ATIVAN PRN ORDERED. PATIENT ASSISTED BACK TO ROOM. STILL DOES NOT WANT TO LISTEN TO REASON. PATIENT BEING VERBALLY ABUSIVE. CALLING NAMES TO NURSING STAFF AND ROOM MATE. PATIENT TRANSFERRED SELF TO WHEELCHAIR AND WHEELING ON THE HALLWAY TALKING TO SELF ABOUT HER BELONGINGS. WILL CONTINUE TO MONITOR
--- NOTE | 2017-07-17 13:40 | NUR ---
GPS RN NOTES BELONGINGS SHOWN TO STAFF. PATIENT HAS CALMED DOWN BUT WITH STILL NOTED WITH EPISODES OF TALKING TO SELF ABOUT BELONGINGS. WILL CONTINUE TO MONITOR
[2017-07-17 16:34] VITALS: BP 99/60
--- NOTE | 2017-07-17 18:17 | NUR ---
GPS RN NOTES PATIENT RESTING INSIDE ROOM. AWAKE, ALERT AND ORIENTED WITH PERIODS OF FORGETFULNESS AND IRRITABILITY. PATIENT BREATHING EVEN AND UNLABORED. NO SOB OR ACUTE DISTRESS NOTED. PATIENT AFEBRILE, SKIN DRY AND WARM TO TOUCH. NO CHANGES IN LOC NOTED. WILL ENDORSE TO INCOMING SHIFT FOR SANTOS. ALL DUE MEDICATIONS GIVEN AND TOLERATED WELL. ALL NURSING NEEDS PROVIDED AND MET. PROVIDED WITH CALM, SAFE, HAZARD-FREE ENVIRONMENT. BED LOCKED AND IN LOW POSITION. BILATERAL UPPER SIDE RAILS UP AND LOCKED. CALL LIGHT WITHIN EASY REACH
[2017-07-17 20:18] VITALS: BP 100/64
[2017-07-17] MEDS: OXCARBAZEPINE 150 MG TABLET PO SCH (21:09)
[2017-07-17] MEDS: TEMAZEPAM 7.5 MG CAPSULE PO PRN (22:28)
--- NOTE | 2017-07-17 22:29 | NUR ---
RN GPS NOTES PT. C/O INSOMNIA 7.5 MG PO PRN GIVEN PER PT. REQUEST
[2017-07-18] MEDS: LORAZEPAM 0.5 MG TABLET PO PRN ×3 (00:17→20:31)
--- NOTE | 2017-07-18 00:20 | NUR ---
RN GPS NOTES PT. C/O ANXIETY , FEELING ANXIOUS . ATIVAN 0.5 MG PO PRN GIVEN, PER PT. REQUEST, WILL CONTINUE TO MONITOR
--- NOTE | 2017-07-18 01:41 | NUR ---
GPS RN NOTE, PATIENT HAS A COMPLAINT OF RIGHT EAR PAIN AT 3 OUT 10 ON THE PAIN. PATIENT RIGHT EAR IS POSITIVE EDEMA AND ERYTHEMA. PAGED [facility] AND INFORMED VILMA SALAS NP OF MY FINDINGS. VILMA SALAS NP ORDERED TO GIVE AMOXICILLIN 500 MG PO BID X 7DAYS STARTING 0900 07/18/2017. ALL ORDERS NOTED AND CARRIED OUT WILL CONTINUE TO MONITOR THIS PATIENT.
[2017-07-18] MEDS: HYDROCODONE/APAP 5/325MG 1 EACH TABLET PO PRN ×4 (02:02→22:20)
--- NOTE | 2017-07-18 02:08 | NUR ---
RN GPS NOTES PT. C/O GENERALIZED PAIN AND RIGHT EAR PAIN NARCO 1 TAB GIVE PER PT. REQUEST , WILL CONTINUE TO MONITOR.
[2017-07-18 08:00] VITALS: BP 104/56
[2017-07-18] MEDS: NICOTINE PATCH (14MG) 14 MG PATCH.TD24 TD SCH (08:18)
[2017-07-18] MEDS: LACTULOSE 10 G/15 ML UDC (PYXIS) PO SCH ×2 (08:19→17:40)
[2017-07-18] MEDS: LEVOTHYROXINE SODIUM 75 MCG TABLET PO SCH (08:19)
[2017-07-18] MEDS: TOPIRAMATE 25 MG TABLET PO SCH ×2 (08:19→17:39)
[2017-07-18] MEDS: PAROXETINE HCL 20 MG TABLET PO SCH (08:19)
[2017-07-18] MEDS: PANTOPRAZOLE 40 MG TABLET.DR PO SCH ×2 (08:19→17:38)
[2017-07-18] MEDS: DULOXETINE HCL 30 MG CAPSULE.DR PO SCH (08:19)
[2017-07-18] MEDS ORDERED: AMOXICILLIN TRIHYDRATE 500 MG CAPSULE PO SCH (09:00)
[2017-07-18] MEDS: AMOXICILLIN TRIHYDRATE 250 MG CAPSULE PO SCH ×2 (09:04→17:39)
--- NOTE | 2017-07-18 09:04 | NUR ---
GPS/RN PATIENT REPORTS NECK PAIN 12/19, ADMINISTERED NORCO 5/325 X 2 TABS, WILL CONTINUE TO MONITOR.
--- NOTE | 2017-07-18 12:30 | NUR ---
Initial Discharge Note: Pt, is uncertain if she will be returning to [facility] [address], [facility] [id number] . However, is certain she cannot return home to [address] [facility] [address] due to her high medical care needs. Pt. wants Windy Fryo; friend (per pt, next of Kin) [phone] to be informed of all care coordination and placement options. SW will help form a safe and proper discharge in collaboration with psychiatrist.
--- NOTE | 2017-07-18 12:30 | NUR ---
SW attempted to contact Windy Mcduffie; friend (per pt, next of Kin) [phone] to inform her of patients admission. Unable to reach left a voicemail.
--- NOTE | 2017-07-18 14:54 | NUR ---
GPS/RN PATIENT IS ANXIOUS, RESTLESS, ADMINISTERED ATIVAN 0.5 MG, WILL CONTINUE TO MONITOR.
--- NOTE | 2017-07-18 15:33 | NUR ---
YOCASTA contacted [facility] [address], [place] [address] to coordinate discharge plan. YOCASTA spoke with Toro rifle case repairer who stated that pts plan of care at facility was to stay short-term then be discharged home with caregiver. Toro stated that pt has been at facility for a month and has a couple days left. YOCASTA asked Toro if pt could return to [facility] to finish off Medicare days then follow initial care plan. Toro stated he would call SW with exact days remaining and help formulate a safe and proper discharge.
[2017-07-18 16:00] VITALS: BP 125/82
--- NOTE | 2017-07-18 17:40 | NUR ---
GPS/RN PATIENT REPORTS NECK PAIN 12/19, ADMINISTERED NORCO 5/325 X 2 TABS, WILL CONTINUE TO MONITOR.
[2017-07-18 19:54] VITALS: BP 111/62
[2017-07-18] MEDS: OXCARBAZEPINE 150 MG TABLET PO SCH (21:39)
[2017-07-18] MEDS: ZOLPIDEM TARTRATE 10 MG TABLET PO PRN (21:39)
[2017-07-19 08:00] VITALS: BP 105/58
--- NOTE | 2017-07-19 08:30 | NUR ---
GPS/RN PATIENT REPORTS BACK PAIN 12/19, ADMINISTERED NORCO 5/325 X 2 TABS, WILL CONTINUE TO MONITOR.
[2017-07-19] MEDS: HYDROCODONE/APAP 5/325MG 1 EACH TABLET PO PRN ×2 (08:37→15:39)
[2017-07-19] MEDS: AMOXICILLIN TRIHYDRATE 250 MG CAPSULE PO SCH ×2 (08:37→16:36)
[2017-07-19] MEDS: LEVOTHYROXINE SODIUM 75 MCG TABLET PO SCH (08:38)
[2017-07-19] MEDS: PANTOPRAZOLE 40 MG TABLET.DR PO SCH ×2 (08:38→16:36)
[2017-07-19] MEDS: DULOXETINE HCL 30 MG CAPSULE.DR PO SCH (08:38)
[2017-07-19] MEDS: TOPIRAMATE 25 MG TABLET PO SCH ×2 (08:38→16:36)
[2017-07-19] MEDS: NICOTINE PATCH (14MG) 14 MG PATCH.TD24 TD SCH (08:38)
[2017-07-19] MEDS: PAROXETINE HCL 20 MG TABLET PO SCH (08:38)
[2017-07-19] MEDS: LACTULOSE 10 G/15 ML UDC (PYXIS) PO SCH ×2 (09:14→16:37)
[2017-07-19] MEDS: FLUTICASONE/VILANTEROL 1 EACH BLST.W.DEV IH SCH (09:22)
[2017-07-19] MEDS: LORAZEPAM 0.5 MG TABLET PO PRN ×2 (09:34→17:32)
--- NOTE | 2017-07-19 15:40 | NUR ---
GPS/RN PATIENT REPORTS BACK PAIN 12/19, ADMINISTERED NORCO 5/325 X 2 TABS, WILL CONTINUE TO MONITOR.
[2017-07-19 16:00] VITALS: BP 100/58
--- NOTE | 2017-07-19 16:02 | NUR ---
SW spoke with Windy Mcduffie; friend (per pt, next of Kin) [phone] to inform her of patients admission.
--- NOTE | 2017-07-19 17:37 | NUR ---
GPS/RN PATIENT IS EXTREMELY AGITATED, ANXIOUS AND ACCUSATORY, UNABLE TO REDIRECT, INTRUSIVE, DELUSIONAL, STATING THAT SHE HAS NOT RECEIVED ANY SEIZURE MEDICATION EVEN AFTER SHE WAS SHOWN HER MEDICATIONS. ADMINISTERED ATIVAN 0.5 MG, WILL CONTINUE TO MONITOR.
--- NOTE | 2017-07-19 19:30 | NUR ---
GPS/RN NOTES PATIENT IS EXTREMELY AGITATED, ANXIOUS HYPERVERBAL , VERBALLY ABUSING TO STAFF , STATING ALL DAY I DIDNOT GET ANY HELP, BUT STAFF WAS TRYING TO HELP HER, PT. IS VERY NEEDY , DEMENDING .
[2017-07-19 20:15] VITALS: BP 101/74
[2017-07-19] MEDS: OLANZAPINE 2.5 MG TABLET PO SCH (20:25)
[2017-07-19] MEDS: OXCARBAZEPINE 150 MG TABLET PO SCH (21:15)
[2017-07-19] MEDS: ZOLPIDEM TARTRATE 10 MG TABLET PO PRN (22:21)
[2017-07-20 08:00] VITALS: BP 105/56
[2017-07-20] MEDS: PANTOPRAZOLE 40 MG TABLET.DR PO SCH ×2 (08:17→17:00)
[2017-07-20] MEDS: LEVOTHYROXINE SODIUM 75 MCG TABLET PO SCH (08:18)
[2017-07-20] MEDS: DULOXETINE HCL 30 MG CAPSULE.DR PO SCH (08:48)
[2017-07-20] MEDS: LACTULOSE 10 G/15 ML UDC (PYXIS) PO SCH ×2 (08:48→17:00)
[2017-07-20] MEDS: OLANZAPINE 2.5 MG TABLET PO SCH ×2 (08:48→17:00)
[2017-07-20] MEDS: TOPIRAMATE 25 MG TABLET PO SCH ×2 (08:48→17:00)
[2017-07-20] MEDS: PAROXETINE HCL 20 MG TABLET PO SCH (08:49)
[2017-07-20] MEDS: NICOTINE PATCH (14MG) 14 MG PATCH.TD24 TD SCH (08:49)
[2017-07-20] MEDS: FLUTICASONE/VILANTEROL 1 EACH BLST.W.DEV IH SCH (08:49)
[2017-07-20] MEDS: AMOXICILLIN TRIHYDRATE 250 MG CAPSULE PO SCH ×2 (09:00→17:00)
[2017-07-20] MEDS: HYDROCODONE/APAP 5/325MG 1 EACH TABLET PO PRN ×2 (09:46→19:28)
--- NOTE | 2017-07-20 09:48 | NUR ---
GPS/RN-NOTES PATIENT WAS SELECTIVE WITH MEDICATIONS, HYPERVERBAL,ARGUMENTATIVE AND VERBALLY ABUSIVE CLAIMING THE SHOE REPAIRER HELPER IS OVERDOSING HER WITH MEDICATIONS. ALSO PATIENT REQUESTING FOR PAIN MEDICATIONS,NORCO 2 TAB GIVEN ORDERED. PATIENT GETS ANGRY AND START THREATENING TO FILE A COMPLAINED THAT MAKE SURE THE SHOE REPAIRER HELPER WILL BE BACK IN THE [facility].
[2017-07-20] MEDS: LORAZEPAM 0.5 MG TABLET PO PRN (10:20)
--- NOTE | 2017-07-20 10:21 | NUR ---
GPS/RN-NOTES PATIENT IN THE NURSE STATION REQUESTING HER ATIVAN FOR HER ANXIETY. ATIVAN 0.5MG P.O GIVEN ORDERED.PATIENT VERBALLY ABUSIVE ACCUSING THE SECONDARY MARKET MANAGER OF NOT GIVING THE RIGHT MEDICATIONS DESPITE GIVING HER ATIVAN . STATED" I'M GOING TO COURT AND I MAKE SURE YOU WILL BE FIRED AND GO BACK TO YOUR COUNTRY".
--- NOTE | 2017-07-20 10:35 | NUR ---
GPS/RN-NOTES PATIENT STRONGLY REFUSED LAB DRAW.LAB STAFF ATTEMPTED X3.
--- NOTE | 2017-07-20 13:35 | NUR ---
RN-CO: Patient is accusatory, accusing staff of hurting her if staff redirect her. She became argumentative to the hearing aid repairer when she attended the hearing. She is accusing staff that nobody cares for her but when a staff member talk to her she will become rude and argumentative like " do you know why my whole story?!" " You guys don't know what you're doing." " You guys are Morons."
[2017-07-20 16:04] VITALS: BP 98/68
--- NOTE | 2017-07-20 16:31 | NUR ---
GPS/RN-NOTES PATIENT SITTING IN HER WHEELCHAIR NEXT TO THE NURSE STATION . PER ONE OF THE STAFF NURSE THE PATIENT ROLLED HERSELF ON THE FLOOR .PATIENT WAS HELP BACK TO HER WHEELCHAIR WITHOUT ANY COMPLAIN OF DISCOMFORT OR INJURIES NOTED. PATIENT REDIRECTED TO THE DAY ROOM.
[2017-07-20] MEDS ORDERED: OLANZAPINE 10 MG VIAL IM STA (17:42)
--- NOTE | 2017-07-20 17:55 | NUR ---
GPS/RN-NOTES PATIENT STRONGLY REFUSED ALL 1700 MEDICATIONS DESPITE EXPLANATIONS OF THE RISK AND BENEFITS. PATIENT GETS AGITATED, BANGING THE NURSE STATION WINDOW WITH BOTH HANDS, SCREAMING AND YELLING USING FOUL LANGUAGES. PATIENT STATED" GIVE ME THE f SHOT AND I'M BE HAPPY BITCH, YOU ARE THE WORSE RN NURSE I EVER MET". ACCUSING STAFF LAUGHING AT HER. CHARGE NURSE MADE DR. TORRES OF PATIENT BEHAVIOR WITH THE ORDER OF ZYPREXA 10MG IM X1. PATIENT WILLINGLY AGREED TO GIVE ON HER LEFT BUTTOCK. WILL CONT. MONITORING FOR SAFETY AND BEHAVIOR.
--- NOTE | 2017-07-20 19:00 | NUR ---
GPS/RN-NOTES PATIENT LAYING IN HER BED ,CALM,NO ACUTE DISTRESS NOTED. ENDORSE TO INCOMING NURSE FOR CONTINUITY OF CARE.
[2017-07-20 20:00] VITALS: BP 81/53
[2017-07-20] MEDS: OXCARBAZEPINE 150 MG TABLET PO SCH (21:12)
[2017-07-20] MEDS: ZOLPIDEM TARTRATE 10 MG TABLET PO PRN (22:04)
[2017-07-20 23:00] VITALS: BP 105/70
[2017-07-21] MEDS: ESTROGENS,CONJUGATED TUBE VG SCH (00:30)
[2017-07-21 08:14] VITALS: BP 115/72
[2017-07-21] MEDS: PANTOPRAZOLE 40 MG TABLET.DR PO SCH ×2 (08:22→16:39)
[2017-07-21] MEDS: DULOXETINE HCL 30 MG CAPSULE.DR PO SCH (08:22)
[2017-07-21] MEDS: OLANZAPINE 2.5 MG TABLET PO SCH ×3 (08:22→16:39)
[2017-07-21] MEDS: LACTULOSE 10 G/15 ML UDC (PYXIS) PO SCH ×2 (08:22→16:39)
[2017-07-21] MEDS: AMOXICILLIN TRIHYDRATE 250 MG CAPSULE PO SCH ×2 (08:22→16:39)
[2017-07-21] MEDS: LEVOTHYROXINE SODIUM 75 MCG TABLET PO SCH (08:23)
[2017-07-21] MEDS: PAROXETINE HCL 20 MG TABLET PO SCH (08:23)
[2017-07-21] MEDS: NICOTINE PATCH (14MG) 14 MG PATCH.TD24 TD SCH (08:23)
[2017-07-21] MEDS: TOPIRAMATE 25 MG TABLET PO SCH ×2 (08:23→16:39)
[2017-07-21] MEDS: HYDROCODONE/APAP 5/325MG 1 EACH TABLET PO PRN ×3 (08:40→20:57)
--- NOTE | 2017-07-21 08:40 | NUR ---
GPS/RN-NOTES PATIENT TOOK HER ALL MORNING MEDICATIONS REQUESTING PAIN MEDICATIONS FOR GENERALIZED PAIN NORCO 2 TAB GIVEN ORDERED. WILL CONTINUE MONITORING
[2017-07-21] MEDS: FLUTICASONE/VILANTEROL 1 EACH BLST.W.DEV IH SCH (08:52)
[2017-07-21] MEDS: LORAZEPAM 0.5 MG TABLET PO PRN ×2 (11:31→18:03)
--- NOTE | 2017-07-21 11:34 | NUR ---
RN GPS NOTES PT. C/O ANXIETY . ATIVAN 0.5 MG PO PRN GIVEN, PER PT. REQUEST, WILL CONTINUE TO MONITOR
--- NOTE | 2017-07-21 13:41 | NUR ---
Discharge Note: Pt will be discharged to [facility] [address] [place] [address] via [facility] [phone]. Windy person to notify [phone] was contacted for discharge plan. Pts mood and affect appeared irritable, anxious, and distressed. Pt denied suicidal/ homicidal ideations. Facilitated info to IDT team who are in agreement with discharge arrangement. The multidisciplinary exitcare form was done, printed, signed, and given to the patient. Cherry Sorter: Dr. Mookie Salgado [phone] [facility] [address] Psychiatrist: Dr. Nnam[address] [facility] [address] [phone] Addendum: 07/21/17 at 1506 by OTILIO RUST Pt is stating she will kill herself upon discharge; pt verbalized "I will slit my wrist if you discharge me". Pt also was yelling loudly stating "You fucking bitches I will darling all of you."
--- NOTE | 2017-07-21 14:21 | NUR ---
YOCASTA faxed progress note and H&P to Chen product safety coordinator at [facility] [phone] per Chen's request.
--- NOTE | 2017-07-21 14:41 | NUR ---
Discharge Note Continued: For smoking cessation, patient will be referred to [facility] [facility] [id number]
--- NOTE | 2017-07-21 15:14 | NUR ---
GPS RN NOTE: PT IN THE HALLWAY ACCUSING STAFF, VERBALLY ABUSIVE , USING UNAPPROPRIATED WORDS,, PATIENT PARANOID AND DELUSIONAL , PT SUPPOSED TO BE DISCHARGE DR GRACE NOTIFIED OF PT BEHAVIOR DR GRACE ORDER TO HOLD DISCHARGE.ORDER PLACED , WILL CONTINUE MONITORING FOR SAFETY AND BEHAVIOR Q 15 MIN.
[2017-07-21] MEDS ORDERED: hydrOXYzine PAMOATE 25 MG CAPSULE PO PRN (15:30)
--- NOTE | 2017-07-21 15:57 | NUR ---
[facility] [address] [place] [address] to inform them that pt will not be discharged today 07/21/17 per psychiatrist orders.
--- NOTE | 2017-07-21 16:04 | NUR ---
YOCASTA contacted Windy person to notify [phone] to inform her that pt will not be discharged today due to her being actively suicidal. YOCASTA encouraged Windy to visit pt.
[2017-07-21 16:42] VITALS: BP 116/83
--- NOTE | 2017-07-21 18:03 | NUR ---
GPS RN NOTE; PATIENT FEELING ANXIOUS REQUESTING ATIVAN . ATIVAN 0.5 MG PO PRN GIVEN PER ORDER WILL CONTINUE MONITORING.
[2017-07-21 20:00] VITALS: BP 106/57
[2017-07-21] MEDS: OXCARBAZEPINE 150 MG TABLET PO SCH (21:47)
[2017-07-21] MEDS: ZOLPIDEM TARTRATE 10 MG TABLET PO PRN (21:47)
[2017-07-22] MEDS: LORAZEPAM 0.5 MG TABLET PO PRN ×2 (01:40→11:16)
[2017-07-22 08:00] VITALS: BP 111/96
[2017-07-22] MEDS: AMOXICILLIN TRIHYDRATE 250 MG CAPSULE PO SCH ×2 (09:05→16:31)
[2017-07-22] MEDS: PAROXETINE HCL 20 MG TABLET PO SCH (09:05)
[2017-07-22] MEDS: LEVOTHYROXINE SODIUM 75 MCG TABLET PO SCH (09:06)
[2017-07-22] MEDS: OLANZAPINE 2.5 MG TABLET PO SCH ×3 (09:06→16:31)
[2017-07-22] MEDS: TOPIRAMATE 25 MG TABLET PO SCH ×2 (09:07→16:31)
[2017-07-22] MEDS: PANTOPRAZOLE 40 MG TABLET.DR PO SCH ×2 (09:07→16:31)
[2017-07-22] MEDS: DULOXETINE HCL 30 MG CAPSULE.DR PO SCH (09:07)
[2017-07-22] MEDS: NICOTINE PATCH (14MG) 14 MG PATCH.TD24 TD SCH (09:07)
[2017-07-22] MEDS: LACTULOSE 10 G/15 ML UDC (PYXIS) PO SCH ×2 (09:08→16:32)
[2017-07-22] MEDS: FLUTICASONE/VILANTEROL 1 EACH BLST.W.DEV IH SCH (09:15)
[2017-07-22] MEDS: HYDROCODONE/APAP 5/325MG 1 EACH TABLET PO PRN ×2 (09:17→17:10)
--- NOTE | 2017-07-22 09:17 | NUR ---
rn notes administered narco 5/325 mg two tabs po prn for generalized pain 11/18, per patient request, v/s taken bp-111/96, p-100, encouraged to increase fluid intake.
--- NOTE | 2017-07-22 10:59 | NUR ---
Discharge Planning: YOCASTA spoke to Chen, Detention Officer from the [facility] [address] [place] [address] [place], [place] [address] Phone; for discharge planning purposes. YOCASTA was informed by Chen that once pt was ready to discharge their sister facility, [facility] would accept pt. YOCASTA was provided with the Orthopedics Teacher's contact information . YOCASTA contacted Toro and a detailed message was left asking for a call back. YOCASTA will follow up to ensure pt is safely and properly discharged.
--- NOTE | 2017-07-22 11:16 | NUR ---
RN NOTES ADMINISTERED ATIVAN 0.5 MG PO PRN FOR ANXIETY, PER PATIENT REQUEST, V/S TAKEN STABLE BP 115/67, P-68. CONTINUED MONITORING.
--- NOTE | 2017-07-22 12:02 | NUR ---
RN NOTES ADMINISTERED TYLENOL 650 MG PO PRN FOR HEADACHE, CONTINUED MONITORING.
--- NOTE | 2017-07-22 13:05 | NUR ---
Discharge Plan: Patient will discharge to [facility]; [address] [facility] [address] via ambulance at 7:30 pm (trip # [id number]). Windy Mcduffie; friend (pt, next of Kin) [phone] has been notified; a message was left on her voicemail. Pts Psychiatrist is Dr. Rizzo, [id number], [facility] [address]; and Commercial Construction Superintendent is Dr. Ordonez, [address] [facility]. [address], [facility] [address]; . Pt is in agreement with discharge plan.
[2017-07-22] MEDS ORDERED: LORAZEPAM 0.5 MG TABLET PO ONE (16:30)
--- NOTE | 2017-07-22 16:31 | NUR ---
RN NOTES ADMINISTERED ATIVAN O.5 MG PO PRN FOR ANXIETY, PER PATIENT REQUEST, V/S TAKEN BP- 132/88, P-96, CONTINUED MONITORING.
--- NOTE | 2017-07-22 17:10 | NUR ---
RN NOTES ADMINISTERED NARCO 5/325 MG PO PRN TWO TABS FOR GENERALIZED PAIN 11/18, PER PATIENT REQUEST, V/S TAKEN BP 133/88, P-93, ENCOURAGED TO INCREASE FLUID INTAKE. CONTINUED MONITORING.
--- NOTE | 2017-07-22 17:45 | NUR ---
RN NOTES CALLED AND GIVEN REPORT [facility] RN NAME DERRELL. RN VERBALIZED UNDERSTANDING. CONTINUED MONITORING.
--- NOTE | 2017-07-22 21:06 | NUR ---
PT WILL DISCHARGE TO [facility] VIA AMBULANCE. PT ACCOMPANIED BY EMT WITH HER BELONGINGS. PT IS A&OX4, NO SOB, RESPIRATION EVEN AND UNLABORED, NO COMPLAIN OF PAIN/DISCOMFORT, NO ACUTE DISTRESS NOTED, V/S STABLE. PT DENIES SI/HI AT THIS TIME, COOPERATIVE WITH STAFF. STABLE UPON DISCHARGE.
== END 2017-07-22 21:00 | DRG 885 ==
LOC: ER 16:25 → GPS 19:01
PROVIDERS: ADMIT Psychiatry & Neurology Psychiatry; ATTEND Hospitalist
DX: F29 Unspecified psychosis not due to a substance or known physiological condition (principal); M32.9 Systemic lupus erythematosus, unspecified; F25.9 Schizoaffective disorder, unspecified; G40.209 Localization-related (focal) (partial) symptomatic epilepsy and epileptic syndromes with complex partial seizures, not intractable, without status epilepticus; J44.9 Chronic obstructive pulmonary disease, unspecified; M06.9 Rheumatoid arthritis, unspecified; Z79.899 Other long term (current) drug therapy; E87.6 Hypokalemia; J45.909 Unspecified asthma, uncomplicated; F39 Unspecified mood [affective] disorder; I34.1 Nonrheumatic mitral (valve) prolapse
CPT/HCPCS: 36415; 70450-TC; 80048-TC; 80053-TC; 80061-TC; 80076-TC; 80305; 81000-TC; 82140-TC; 85025-TC; 87081-TC; A4606; G0480; J2060; J3490; Z7610